=== PATIENT | female | born 1975 | race Caucasian/White ===

== ENCOUNTER → 2019-08-20 14:48 | Outpatient (BNVA) | payer SELFPAY | PROVIDERS: Family Provider Nurse Practitioner Family; PCP Nurse Practitioner Family; Visit Provider Nurse Practitioner | DX: S96.911A Strain of unspecified muscle and tendon at ankle and foot level, right foot, initial encounter (principal); X58.XXXA Exposure to other specified factors, initial encounter; M77.31 Calcaneal spur, right foot | CPT/HCPCS: 73630 ==